=== PATIENT | female | born 1960 | race Caucasian/White ===

== ENCOUNTER → 2020-09-25 | Outpatient (CLI) | payer BC | LOC: RAD 13:23 | DX: Z01.818 Encounter for other preprocedural examination (principal) | CPT/HCPCS: 71046 ==

== ENCOUNTER → 2021-11-15 | Outpatient (CLI) | payer BC | LOC: CT 08:00 | DX: H53.9 Unspecified visual disturbance (principal) | CPT/HCPCS: 70450 ==